=== PATIENT | male | born 1990 | race Caucasian/White ===

== ENCOUNTER 2019-01-20 04:13 | Emergency (ER) | payer MEDICAID ==
[~2019-01-20] VITALS: Ht 180.3 cm; Wt 89.5 kg
[~2019-01-20 04:13] MED LIST: ASPI-128; BUSP30TA2 PO; FLUO20CA39 PO; HYDR-4353 PO; IBUP-1984 PO; LORA1TAB PO; TIZA4TAB11 PO; TRAM50TA2 PO; VARE0.5T PO; ZIPR60CA2 PO
--- NOTE | 2019-01-20 04:19 | NUR ---
[facility] CONTACTED CASE #[id number]
[2019-01-20] MEDS ORDERED: IBUP-1985 PO (05:09)
[2019-01-20] MEDS ORDERED: AMOX-101 PO (06:27)
[2019-01-20 07:03] VITALS: BP 114/73
== END 2019-01-20 07:07 | disposition home or self-care (01) ==
LOC: ER 04:14
DX: S02.82XA Fracture of other specified skull and facial bones, left side, initial encounter for closed fracture (principal); S05.12XA Contusion of eyeball and orbital tissues, left eye, initial encounter; S09.90XA Unspecified injury of head, initial encounter; F10.129 Alcohol abuse with intoxication, unspecified; F15.90 Other stimulant use, unspecified, uncomplicated; Z59.0 Homelessness; Z56.0 Unemployment, unspecified; Z88.8 Allergy status to other drugs, medicaments and biological substances; Z79.2 Long term (current) use of antibiotics; Z79.899 Other long term (current) drug therapy; Y04.8XXA Assault by other bodily force, initial encounter; Y93.89 Activity, other specified; Y92.89 Other specified places as the place of occurrence of the external cause; Y99.8 Other external cause status; Y90.9 Presence of alcohol in blood, level not specified
CPT/HCPCS: 70450; 70486; 72125; 99284

== ENCOUNTER 2019-01-20 09:38 | Emergency (ER) | payer MEDICAID ==
[~2019-01-20] VITALS: Ht 170.2 cm; Wt 89.5 kg
[~2019-01-20 09:38] MED LIST changes: +AMOX-101 PO; +IBUP-1985 PO
[2019-01-20 09:52] VITALS: BP 121/77
== END 2019-01-20 15:21 | disposition left against medical advice (07) ==
LOC: ER 09:39
DX: H57.12 Ocular pain, left eye (principal); R22.0 Localized swelling, mass and lump, head; Z53.21 Procedure and treatment not carried out due to patient leaving prior to being seen by health care provider

== ENCOUNTER 2020-03-01 16:13 | Emergency (ER) | payer MEDICAID ==
[~2020-03-01 16:13] MED LIST changes: -AMOX-101 PO
== END 2020-03-01 17:17 | disposition left against medical advice (07) ==
LOC: ER 16:14
DX: K62.5 Hemorrhage of anus and rectum (principal); Z53.21 Procedure and treatment not carried out due to patient leaving prior to being seen by health care provider

== ENCOUNTER 2023-04-10 23:51 | Emergency (ER) | payer MEDICAID ==
[~2023-04-10] VITALS: Ht 167.6 cm; Wt 86.4 kg
[2023-04-10 23:54] VITALS: BP 132/90
[2023-04-11] MEDS ORDERED: DOCU-148 PO (00:02)
[2023-04-11] MEDS ORDERED: MAGN296S89 PO (00:02)
== END 2023-04-11 00:14 | disposition home or self-care (01) ==
LOC: ER 23:52
DX: K59.00 Constipation, unspecified (principal); R10.9 Unspecified abdominal pain; Z76.0 Encounter for issue of repeat prescription; F17.200 Nicotine dependence, unspecified, uncomplicated; F15.90 Other stimulant use, unspecified, uncomplicated; Z72.89 Other problems related to lifestyle; Z56.0 Unemployment, unspecified; Z59.00 Homelessness unspecified; Z88.8 Allergy status to other drugs, medicaments and biological substances; Z79.899 Other long term (current) drug therapy
CPT/HCPCS: 99281

== ENCOUNTER 2023-04-17 07:28 | Emergency (ER) | payer MEDICAID ==
[~2023-04-17] VITALS: Ht 170.2 cm; Wt 90.0 kg
[~2023-04-17 07:28] MED LIST changes: +DOCU-148 PO; +MAGN296S89 PO
[2023-04-17 09:10] VITALS: BP 140/94
== END 2023-04-17 09:13 | disposition home or self-care (01) ==
LOC: ER 07:28
DX: F15.10 Other stimulant abuse, uncomplicated (principal); F12.90 Cannabis use, unspecified, uncomplicated; F17.200 Nicotine dependence, unspecified, uncomplicated; Z56.0 Unemployment, unspecified; Z59.00 Homelessness unspecified; Z88.8 Allergy status to other drugs, medicaments and biological substances; Z79.899 Other long term (current) drug therapy; Z13.89 Encounter for screening for other disorder
CPT/HCPCS: 99281

== ENCOUNTER 2023-12-12 14:07 | Emergency (ER) | payer MEDICAID ==
[~2023-12-12] VITALS: Ht 167.6 cm; Wt 88.6 kg
[2023-12-12 14:17] VITALS: PULSE 73
[2023-12-12] MEDS ORDERED: BUPR1FIL5 SL ×2 (15:39→15:40)
[2023-12-12 16:13] VITALS: BP 134/86; RESP 16; TEMP 98.1; O2SAT 96
== END 2023-12-12 16:15 | disposition home or self-care (01) ==
LOC: ER 14:07
DX: F11.20 Opioid dependence, uncomplicated (principal); Z76.0 Encounter for issue of repeat prescription; F20.9 Schizophrenia, unspecified; F10.90 Alcohol use, unspecified, uncomplicated; F12.90 Cannabis use, unspecified, uncomplicated; F15.90 Other stimulant use, unspecified, uncomplicated; Z59.00 Homelessness unspecified; Z56.0 Unemployment, unspecified; Z88.8 Allergy status to other drugs, medicaments and biological substances; Z79.899 Other long term (current) drug therapy; Z79.1 Long term (current) use of non-steroidal anti-inflammatories (NSAID)
CPT/HCPCS: 99281